=== PATIENT | female | born 1935 | race Hispanic/Latino ===

== ENCOUNTER 2021-03-25 11:48 | Observation (INO) | payer OTHER ==
[2021-03-25] VITALS (9 sets, daily range): BP systolic 123–174; BP diastolic 42–67
[~2021-03-25] VITALS: Ht 157.5 cm; Wt 50.8 kg
[2021-03-25] MEDS ORDERED: ASPIRIN 325 MG TABLET PO ONE (12:15)
[2021-03-25 12:23] LABS: APPEARANCE,URINE Clear (CLEAR); BILIRUBIN,URINE Negative (NEGATIVE); COLOR,URINE Yellow (YELLOW); GLUCOSE, URINE (UA) Negative (NEGATIVE); KETONES,URINE Negative (NEGATIVE); LEUKOCYTE ESTERASE ,URINE Large (NEGATIVE); NITRATE,URINE Negative (NEGATIVE); OCCULT BLOOD,URINE Small (NEGATIVE); PROTEIN,URINE Negative (NEGATIVE); UROBILINOGEN,URINE 0.2 mg/dL (0.2-1.0)
[2021-03-25] MEDS ORDERED: ASPIRIN 325 MG TABLET ONE (12:23)
[2021-03-25 12:27] LABS: BASOPHILS % (AUTO) 0.3 % (0.0-5.0); EOSINOPHILS % (AUTO) 2.5 % (0.0-8.0); LYMPHOCYTES % (AUTO) 21.2 % (21.0-51.0); MEAN CORPUSCULAR HEMOGLOBIN 29.4 pg (27.0-33.0); MEAN CORPUSCULAR HGB CONC 30.8 g/dL (32.0-36.0); MEAN CORPUSCULAR VOLUME 95.6 fL (79-99); MONOCYTES % (AUTO) 7.1 % (3.0-13.0); NEUTROPHILS % (AUTO) 68.5 % (40.0-77.0); PLATELET COUNT (AUTO) 201 K/uL (130-400); RED BLOOD CELL COUNT(AUTO) 2.72 MIL/uL (4.00-5.50); RED CELL DISTRIBUTION WIDTH 14.9 % (11.0-15.5); WHITE BLOOD COUNT (AUTO) 9.8 K/uL (4.8-10.8)
[2021-03-25 12:29] LABS: BACTERIA,URINE Few /HPF (None Seen); MUCUS,URINE Rare LPF (None Seen); RBC,URINE 0-1 /HPF (0-1)
[2021-03-25 12:38] LABS: CREATININE 0.9 mg/dL (0.5-1.5); POTASSIUM 5.1 mmol/L (3.5-5.1)
[2021-03-25 12:43] LABS: BILIRUBIN,TOTAL 0.2 mg/dL (0.2-1.0); CRP QUANTITATIVE 14.2 mg/L (0.00-9.0); TOTAL PROTEIN, SERUM 6.8 g/dL (6.0-8.3)
[2021-03-25 12:57] LABS: B-TYPE NATRIURETIC PEPTIDE 465 pg/mL (0-100)
[2021-03-25] MEDS ORDERED: LACTULOSE 20 GM/30 ML UDCUP PO PRN (14:45)
[2021-03-25] MEDS ORDERED: ACETAMINOPHEN 325 MG TAB PO PRN ×2 (14:45)
[2021-03-25] MEDS ORDERED: ONDANSETRON 4MG INJ IV PRN (14:45)
[2021-03-25] MEDS ORDERED: NITROGLYCERIN 0.4 MG SL TAB SL PRN (14:45)
[2021-03-25] MEDS ORDERED: MORPHINE 2 MG SYG IV PRN (14:45)
[2021-03-25 15:47] LABS: CREATINE KINASE, TOTAL 38 U/L (21-232); MYOGLOBIN 36 ng/mL (10-92); TROPONIN I < 0.04 ng/mL (0.00-0.06)
[2021-03-25] MEDS: NITROGLYCERIN 1GM OINT 1 INCH/1GM TD SCH ×2 (16:01→22:45)
[2021-03-25] MEDS: CEFTRIAXONE 1G VIAL IVP SCH (16:01)
[2021-03-25] MEDS: FAMOTIDINE 20MG VIAL IV SCH (21:30)
[2021-03-25] MEDS: METOPROLOL TARTRATE 25 MG TAB PO SCH (21:30)
[2021-03-25] MEDS: ATORVASTATIN 20 MG TABLET PO SCH (21:30)
[2021-03-25 21:56] LABS: CREATINE KINASE, TOTAL 34 U/L (21-232); MYOGLOBIN 38 ng/mL (10-92); TROPONIN I < 0.04 ng/mL (0.00-0.06)
[2021-03-26] MEDS: CEFTRIAXONE 1G VIAL IVP SCH ×2 (02:34→19:53)
[2021-03-26 04:26] VITALS: BP 150/60
[2021-03-26] MEDS: NITROGLYCERIN 1GM OINT 1 INCH/1GM TD SCH ×2 (06:07→19:53)
[2021-03-26 07:09] LABS: CHOLESTEROL 126 mg/dL (<200); CREATINE KINASE, TOTAL 30 U/L (21-232); HDL CHOLESTEROL 36 mg/dL (35-85); LDL DIRECT 82 mg/dL (0-99); MYOGLOBIN 44 ng/mL (10-92); TRIGLYCERIDES 106 mg/dL (30-200); TROPONIN I < 0.04 ng/mL (0.00-0.06)
[2021-03-26 07:36] LABS: HEMOGLOBIN A1C 5.3 % (4.0-6.0)
[2021-03-26 08:28] VITALS: BP 148/57
[2021-03-26] MEDS: METOPROLOL TARTRATE 25 MG TAB PO SCH ×2 (10:46→19:50)
[2021-03-26] MEDS: ASPIRIN 325 MG TABLET PO SCH (10:46)
[2021-03-26] MEDS: FAMOTIDINE 20MG VIAL IV SCH ×2 (10:46→19:50)
[2021-03-26] MEDS: ENOXAPARIN SODIUM 40 MG/0.4 ML SYRINGE SQ SCH (10:47)
[2021-03-26 11:16] VITALS: BP 102/57
[2021-03-26 16:13] VITALS: BP 130/60
[2021-03-26 17:36] LABS: RETICULOCYTE % (AUTO) 1.58 % (0.42-2.23)
[2021-03-26 17:53] LABS: % IRON SATURATION 25.1 % (22-44)
[2021-03-26 18:16] LABS: THYROID STIMULATING HORMONE 1.13 uIU/mL (0.36-3.74)
[2021-03-26 19:49] VITALS: BP 186/76
[2021-03-26] MEDS: ATORVASTATIN 20 MG TABLET PO SCH ×3 (19:50→20:06)
[2021-03-26 23:46] VITALS: BP 153/64
[2021-03-27] MEDS: NITROGLYCERIN 1GM OINT 1 INCH/1GM TD SCH ×2 (04:05→14:45)
[2021-03-27] MEDS: CEFTRIAXONE 1G VIAL IVP SCH ×2 (04:05→15:00)
[2021-03-27 04:27] VITALS: BP 127/54
[2021-03-27 08:00] VITALS: BP 145/46
[2021-03-27] MEDS: ENOXAPARIN SODIUM 40 MG/0.4 ML SYRINGE SQ SCH (09:00)
[2021-03-27] MEDS: FAMOTIDINE 20MG VIAL IV SCH (09:15)
[2021-03-27] MEDS: METOPROLOL TARTRATE 25 MG TAB PO SCH (09:15)
[2021-03-27] MEDS: ASPIRIN 325 MG TABLET PO SCH (09:15)
[2021-03-27 12:00] VITALS: BP 157/52
[2021-03-27] MEDS ORDERED: LEVOFLOXACIN 500 MG TABLET PO SCH (13:30)
[2021-03-27] MEDS ORDERED: LEVO500T89 PO (13:33)
== END 2021-03-27 16:34 | disposition home or self-care (01) ==
LOC: EDH 11:48 → EDHIP 14:45 → 4BH 22:41
PROVIDERS: ADMIT Internal Medicine; ATTEND Internal Medicine
DX: R07.89 Other chest pain (principal); D64.9 Anemia, unspecified; N39.0 Urinary tract infection, site not specified; R79.89 Other specified abnormal findings of blood chemistry; I25.10 Atherosclerotic heart disease of native coronary artery without angina pectoris; I10 Essential (primary) hypertension; E53.8 Deficiency of other specified B group vitamins; K21.9 Gastro-esophageal reflux disease without esophagitis; Z79.01 Long term (current) use of anticoagulants; Z90.49 Acquired absence of other specified parts of digestive tract; Z98.890 Other specified postprocedural states
CPT/HCPCS: 36415 ×2; 71045; 80053; 80061; 81001; 82550 ×3; 82607; 82728; 82746; 83036; 83540; 83550; 83874 ×3; 83880; 84145; 84443; 84484 ×4; 85025; 85045; 86140; 87077; 87088; 87186; 93005 ×3; 93306; 93356; 96372; 96374; 96375; 96376 ×2; 99285; G0378 ×50; J0696 ×4; J1650; J3490 ×4

== ENCOUNTER 2022-03-27 17:50 | Emergency (ER) | payer OTHER ==
[~2022-03-27] VITALS: Ht 154.9 cm; Wt 46.3 kg
[~2022-03-27 17:50] MED LIST: LEVO500T90 PO
[2022-03-27 17:55] VITALS: BP 133/55
[2022-03-28] MEDS ORDERED: HYDR42CR3 TP (14:28)
[2022-03-28] MEDS ORDERED: LORA10TA7 PO (14:28)
== END 2022-03-27 20:54 | disposition left against medical advice (07) ==
LOC: EDH 17:50
DX: L29.9 Pruritus, unspecified (principal); Z53.21 Procedure and treatment not carried out due to patient leaving prior to being seen by health care provider

== ENCOUNTER 2022-03-28 14:20 | Emergency (ER) | payer OTHER ==
[~2022-03-28] VITALS: Ht 152.4 cm; Wt 49.9 kg
[2022-03-28 14:25] VITALS: BP 112/56
[2022-03-28] MEDS ORDERED: LORA10TA7 PO (14:28)
[2022-03-28] MEDS ORDERED: HYDR42CR3 TP (14:28)
== END 2022-03-28 14:39 | disposition home or self-care (01) ==
LOC: EDH 14:20
DX: L29.9 Pruritus, unspecified (principal); I10 Essential (primary) hypertension; Z90.49 Acquired absence of other specified parts of digestive tract; Z98.890 Other specified postprocedural states

== ENCOUNTER 2022-04-08 13:33 | Emergency (ER) | payer OTHER ==
[~2022-04-08] VITALS: Ht 154.9 cm; Wt 46.3 kg
[~2022-04-08 13:33] MED LIST changes: +HYDR42CR3 TP; +LORA10TA7 PO
[2022-04-08 13:55] VITALS: BP 130/48
[2022-04-08] MEDS ORDERED: HYD25 PO (16:40)
[2022-04-08 16:49] LABS: BASOPHILS % (AUTO) 0.3 % (0.0-5.0); HEMATOCRIT 26.3 % (36-48); LYMPHOCYTES % (AUTO) 18.7 % (21.0-51.0); MEAN CORPUSCULAR HEMOGLOBIN 30.9 pg (27.0-33.0); MEAN CORPUSCULAR HGB CONC 33.1 g/dL (32.0-36.0); MEAN CORPUSCULAR VOLUME 93.3 fL (79-99); MONOCYTES % (AUTO) 10.6 % (3.0-13.0); NEUTROPHILS % (AUTO) 66.9 % (40.0-77.0); PLATELET COUNT (AUTO) 240 K/uL (130-400); RED BLOOD CELL COUNT(AUTO) 2.82 MIL/uL (4.00-5.50); RED CELL DISTRIBUTION WIDTH 15.6 % (11.0-15.5); WHITE BLOOD COUNT (AUTO) 6.1 K/uL (4.8-10.8)
[2022-04-08 16:59] LABS: CREATININE 1.1 mg/dL (0.5-1.5); POTASSIUM 4.6 mmol/L (3.5-5.1)
[2022-04-08] MEDS ORDERED: HYDROXYZINE 25 MG TABLET PO ONE (17:00)
[2022-04-08 17:03] LABS: ALBUMIN 2.5 g/dL (3.5-5.0); BILIRUBIN,TOTAL 0.2 mg/dL (0.2-1.0); MAGNESIUM 2.3 mg/dL (1.80-2.40); TOTAL PROTEIN, SERUM 6.4 g/dL (6.0-8.3)
== END 2022-04-08 17:45 | disposition home or self-care (01) ==
LOC: EDH 13:33
DX: L29.9 Pruritus, unspecified (principal); I10 Essential (primary) hypertension; K21.9 Gastro-esophageal reflux disease without esophagitis; Z98.890 Other specified postprocedural states; Z79.899 Other long term (current) drug therapy
CPT/HCPCS: 36415; 80053; 83735; 85025

== ENCOUNTER 2022-07-19 20:31 | Emergency (ER) | payer OTHER ==
[~2022-07-19] VITALS: Ht 154.9 cm; Wt 47.6 kg
[~2022-07-19 20:31] MED LIST changes: +HYD25 PO; +LEVO-70 PO; -LEVO500T90 PO
[2022-07-19 21:48] LABS: BASOPHILS % (AUTO) 0.5 % (0.0-5.0); EOSINOPHILS % (AUTO) 0.8 % (0.0-8.0); HEMATOCRIT 29.8 % (36-48); LYMPHOCYTES % (AUTO) 18.6 % (21.0-51.0); MEAN CORPUSCULAR HEMOGLOBIN 31.2 pg (27.0-33.0); MEAN CORPUSCULAR HGB CONC 33.2 g/dL (32.0-36.0); MONOCYTES % (AUTO) 13.2 % (3.0-13.0); NEUTROPHILS % (AUTO) 66.4 % (40.0-77.0); PLATELET COUNT (AUTO) 261 K/uL (130-400); RED BLOOD CELL COUNT(AUTO) 3.17 MIL/uL (4.00-5.50); RED CELL DISTRIBUTION WIDTH 15.5 % (11.0-15.5); WHITE BLOOD COUNT (AUTO) 5.9 K/uL (4.8-10.8)
[2022-07-19 22:02] LABS: CREATININE 1.2 mg/dL (0.5-1.5); POTASSIUM 4.2 mmol/L (3.5-5.1)
[2022-07-19 22:10] LABS: TOTAL PROTEIN, SERUM 4.9 g/dL (6.0-8.3)
[2022-07-19 22:20] LABS: APPEARANCE,URINE CLEAR (CLEAR); BILIRUBIN,URINE NEGATIVE (NEGATIVE); COLOR,URINE COLORLESS (YELLOW); GLUCOSE, URINE (UA) NEGATIVE (NEGATIVE); KETONES,URINE NEGATIVE (NEGATIVE); LEUKOCYTE ESTERASE ,URINE NEGATIVE Leu/uL (NEGATIVE); NITRATE,URINE NEGATIVE (NEGATIVE); OCCULT BLOOD,URINE NEGATIVE (NEGATIVE); PH,URINE 5.5 (5.0-8.0); PROTEIN,URINE NEGATIVE (NEGATIVE); UROBILINOGEN,URINE 0.2 mg/dL (0.2-1.0)
[2022-07-20] MEDS ORDERED: MECL-226 PO (02:11)
[2022-07-20 02:13] VITALS: BP 129/67
== END 2022-07-20 02:23 | disposition home or self-care (01) ==
LOC: EDH 20:31
DX: R42 Dizziness and giddiness (principal); E78.00 Pure hypercholesterolemia, unspecified; I10 Essential (primary) hypertension
CPT/HCPCS: 36415; 70450; 80053; 81003; 84484; 85025; 93005

== ENCOUNTER 2022-08-25 17:21 | Emergency (ER) | payer OTHER ==
[~2022-08-25] VITALS: Ht 154.9 cm; Wt 46.3 kg
[~2022-08-25 17:21] MED LIST changes: +MECL-226 PO
[2022-08-25 18:06] LABS: BASOPHILS % (AUTO) 0.2 % (0.0-5.0); HEMATOCRIT 28.7 % (36-48); LYMPHOCYTES % (AUTO) 15.9 % (21.0-51.0); MEAN CORPUSCULAR HEMOGLOBIN 32.1 pg (27.0-33.0); MEAN CORPUSCULAR HGB CONC 33.4 g/dL (32.0-36.0); MONOCYTES % (AUTO) 10.4 % (3.0-13.0); NEUTROPHILS % (AUTO) 73.3 % (40.0-77.0); PLATELET COUNT (AUTO) 268 K/uL (130-400); RED BLOOD CELL COUNT(AUTO) 2.99 MIL/uL (4.00-5.50); RED CELL DISTRIBUTION WIDTH 16.8 % (11.0-15.5); WHITE BLOOD COUNT (AUTO) 4.7 K/uL (4.8-10.8)
[2022-08-25 18:21] LABS: CREATININE 0.9 mg/dL (0.5-1.5); POTASSIUM 3.9 mmol/L (3.5-5.1)
[2022-08-25 18:32] LABS: ALBUMIN 1.4 g/dL (3.5-5.0); TOTAL PROTEIN, SERUM 4.9 g/dL (6.0-8.3)
[2022-08-25 18:46] LABS: APPEARANCE,URINE CLEAR (CLEAR); BILIRUBIN,URINE NEGATIVE (NEGATIVE); COLOR,URINE YELLOW (YELLOW); GLUCOSE, URINE (UA) NEGATIVE (NEGATIVE); KETONES,URINE NEGATIVE (NEGATIVE); LEUKOCYTE ESTERASE ,URINE NEGATIVE Leu/uL (NEGATIVE); NITRATE,URINE NEGATIVE (NEGATIVE); OCCULT BLOOD,URINE NEGATIVE (NEGATIVE); PH,URINE 6.5 (5.0-8.0); PROTEIN,URINE NEGATIVE (NEGATIVE); UROBILINOGEN,URINE 0.2 mg/dL (0.2-1.0)
[2022-08-25 19:09] LABS: CRP QUANTITATIVE 22.4 mg/L (0.00-9.0)
[2022-08-25 19:55] VITALS: BP 134/55
== END 2022-08-25 20:01 | disposition home or self-care (01) ==
LOC: EDH 17:21
DX: R53.1 Weakness (principal); R63.0 Anorexia; D64.9 Anemia, unspecified; E78.00 Pure hypercholesterolemia, unspecified; I10 Essential (primary) hypertension; Z79.899 Other long term (current) drug therapy; Z98.890 Other specified postprocedural states
CPT/HCPCS: 36415; 71045; 80053; 81003; 82550; 83690; 83735; 83874; 84484; 85025; 86140; 93005